=== PATIENT | male | born 1985 | race Caucasian/White ===

== ENCOUNTER 2019-02-02 16:08 | Emergency (ER) | payer OTHER ==
[~2019-02-02] VITALS: Ht 193 cm; Wt 122.7 kg
[2019-02-02 16:17] VITALS: BP 139/78; TEMP 97.7
[2019-02-02] MEDS ORDERED: NORCO 325 MG-51 TAB PO (19:27)
[2019-02-02] MEDS ORDERED: CEPHALEXIN500 M1 PO (19:27)
[2019-02-02 19:53] VITALS: PULSE 58
== END 2019-02-02 19:53 | disposition home or self-care (01) ==
LOC: COL.ER 16:08
DX: S62.634B Displaced fracture of distal phalanx of right ring finger, initial encounter for open fracture (principal); Z23 Encounter for immunization; W26.8XXA Contact with other sharp object(s), not elsewhere classified, initial encounter
CPT/HCPCS: J2270; J2543